=== PATIENT | female | born 1985 | race African-American/Black ===

== ENCOUNTER 2017-03-23 22:35 | Inpatient (IN) ==
[2017-03-24] MEDS ORDERED: ONDANSETRON 4 MG/2 ML VIAL IV STA (00:41)
[2017-03-24] MEDS ORDERED: cefTRIAXone 1,000 MG in SODIUM CHLORIDE 0.9% 100 ML IV STA (00:41)
[2017-03-24] MEDS ORDERED: SODIUM CHLORIDE 0.9% 1,000 ML IV STA (00:41)
[2017-03-24] MEDS ORDERED: KETOROLAC 30 MG/1 ML VIAL IV STA (00:41)
[2017-03-24] MEDS ORDERED: HYDROmorphone 2 MG/1 ML VIAL IV STA (00:41)
[2017-03-24 01:20] LABS: Basophils # 0.1 10*3/uL (0.0-0.2); Basophils % 0.5 % (0.0-0.8); Eosinophils # 0.1 10*3/uL (0.0-0.87); Eosinophils % 1.1 % (0.00-10.9); Hematocrit 40.7 VOL% (35.7-47.0); Hemoglobin 13.2 GM/DL (12.0-16.0); Immature Granulocytes % 0.3 %; Immature Granulocytes Absolute 0.03 #; Lymphocytes # 5.2 10*3/uL (1.4-4.0); Lymphocytes % 51.7 % (21.3-54.2); Mean Corpuscular HGB Conc 32.4 GM/DL (32-36); Mean Corpuscular Hemoglobin 25 PG (27-34); Mean Corpuscular Volume 78.3 FL (87-102); Mean Platelet Volume 10.1 FL (9.6-12.0); Monocytes # 0.6 10*3/uL (0.11-0.8); Monocytes % 5.7 % (1.7-12.7); Neutrophils # 4.1 10*3/uL (1.4-7.4); Neutrophils % 40.7 % (38.7-73.9); Platelet Count 370 T/CUMM (130-400); Red Cell Distribution Width 16.1 % (9.3-17.3); White Blood Count 10.1 T/CUMM (4-12)
[2017-03-24] MEDS ORDERED: cefTRIAXone 1,000 MG VIAL ONE (01:21)
[2017-03-24] MEDS ORDERED: ONDANSETRON 4 MG/2 ML VIAL ONE (01:21)
[2017-03-24] MEDS ORDERED: HYDROmorphone 2 MG/1 ML VIAL ONE (01:22)
[2017-03-24] MEDS ORDERED: KETOROLAC 30 MG/1 ML VIAL ONE (01:22)
[2017-03-24 01:27] LABS: Apearance,Urine CLEAR (Clear); Bilirubin,Urine Negative (Negative); Blood, Urine Large mg/dL (Negative); Glucose,Urine (UA) Negative (Negative); Ketones,Urine Negative (Negative); Mucus,Urine Occasional /LPF (Occasional); Nitrite,Urine Positive (Negative); Protein,Urine 30 MG/DL; RBC,Urine 423 /HPF (0-4); Squamous Epithelial Cell,Urine Occasional /HPF (0-10); Urine Color BLUE (Yellow); Urine Specific Gravity 1.004 (1.001-1.035); WBC,Urine 75 /HPF (0-6)
[2017-03-24] MEDS ORDERED: LEVOFLOXACIN INJ 750 MG in PREMIX 1 EACH IV STA (01:31)
[2017-03-24 02:02] LABS: Lactic Acid 0.7 MMOL/L (0.4-2.0)
[2017-03-24 02:04] LABS: Alanine Aminotransferase 28 U/L (13-56); Albumin 3.5 G/DL (3.4-5.0); Alkaline Phosphatase 98 U/L (45-117); Amylase 68 U/L (25-115); Aspartate Amino Transferase 16 U/L (0-37); Bilirubin,Total < 0.39 MG/DL (0.2-1.0); Blood Urea Nitrogen 14 MG/DL (7-18); Calcium 9.1 MG/DL (8.5-10.1); Glucose 90 MG/DL (74-106); Magnesium 2.1 MG/DL (1.8-2.4); Osmolality,Calculated 273.8 MOS/KG (273-304); Potassium 4.6 MMOL/L (3.5-5.1); Sodium 137 MMOL/L (136-145); Total Protein 7.1 G/DL (6.4-8.3)
[2017-03-24] MEDS ORDERED: LEVOFLOXACIN INJ 150 ML IV ONE (02:42)
[2017-03-24] MEDS ORDERED: ONDANSETRON 4 MG/2 ML VIAL IV PRN (03:00)
[2017-03-24] MEDS ORDERED: ACETAMINOPHEN 325 MG TABLET PO PRN (03:00)
[2017-03-24] MEDS: SODIUM CHLORIDE 0.9% 1,000 ML IV SCH ×3 (04:29→21:05)
[2017-03-24] MEDS ORDERED: HYDROmorphone 2 MG/1 ML VIAL IV ONE (04:43)
[2017-03-24] MEDS: PHENAZOPYRIDINE 95 MG TABLET PO SCH ×4 (09:33→21:10)
[2017-03-24 09:43] LABS: Basophils # 0.1 10*3/uL (0.0-0.2); Basophils % 0.6 % (0.0-0.8); Eosinophils # 0.1 10*3/uL (0.0-0.87); Eosinophils % 0.6 % (0.00-10.9); Hematocrit 37.6 VOL% (35.7-47.0); Hemoglobin 12.3 GM/DL (12.0-16.0); Immature Granulocytes % 0.2 %; Immature Granulocytes Absolute 0.02 #; Lymphocytes # 3.9 10*3/uL (1.4-4.0); Mean Corpuscular HGB Conc 32.7 GM/DL (32-36); Mean Corpuscular Hemoglobin 26 PG (27-34); Mean Corpuscular Volume 77.8 FL (87-102); Mean Platelet Volume 10.7 FL (9.6-12.0); Monocytes # 0.6 10*3/uL (0.11-0.8); Monocytes % 7.1 % (1.7-12.7); Neutrophils # 4.2 10*3/uL (1.4-7.4); Neutrophils % 47.5 % (38.7-73.9); Platelet Count 373 T/CUMM (130-400); Red Blood Count 4.83 MC/CUMM (3.8-5.5); Red Cell Distribution Width 16.1 % (9.3-17.3); White Blood Count 8.9 T/CUMM (4-12)
[2017-03-24 10:07] LABS: Calcium 8.1 MG/DL (8.5-10.1); Osmolality,Calculated 276.5 MOS/KG (273-304); Potassium 4.5 MMOL/L (3.5-5.1)
[2017-03-24] MEDS: KETOROLAC 30 MG/1 ML VIAL IV PRN (21:10)
[2017-03-25] MEDS: cefTRIAXone 1,000 MG in SYRINGE 1 EACH IV SCH (01:29)
[2017-03-25] MEDS: SODIUM CHLORIDE 0.9% 1,000 ML IV SCH ×4 (01:29→18:50)
[2017-03-25] MEDS: traMADol 50 MG TABLET PO PRN (01:36)
[2017-03-25] MEDS: LEVOFLOXACIN INJ 500 MG in PREMIX 1 EACH IV SCH (02:40)
[2017-03-25] MEDS: PHENAZOPYRIDINE 95 MG TABLET PO SCH ×3 (10:02→21:27)
[2017-03-25] MEDS: KETOROLAC 30 MG/1 ML VIAL IV PRN ×2 (11:53→21:27)
[2017-03-25] MEDS: LACTULOSE 20 GM/30 ML UDCUP PO PRN (21:30)
[2017-03-26] MEDS: cefTRIAXone 1,000 MG in SYRINGE 1 EACH IV SCH (01:00)
[2017-03-26] MEDS: LEVOFLOXACIN INJ 500 MG in PREMIX 1 EACH IV SCH ×2 (01:01→01:49)
[2017-03-26] MEDS: KETOROLAC 30 MG/1 ML VIAL IV PRN ×2 (03:35→20:57)
[2017-03-26] MEDS: SODIUM CHLORIDE 0.9% 1,000 ML IV SCH ×3 (03:38→16:11)
[2017-03-26] MEDS: PHENAZOPYRIDINE 95 MG TABLET PO SCH ×3 (09:04→20:56)
[2017-03-26] MEDS: LACTULOSE 20 GM/30 ML UDCUP PO PRN (09:07)
[2017-03-26] MEDS: traMADol 50 MG TABLET PO PRN (14:56)
[2017-03-26] MEDS ORDERED: MAGNESIUM CITRATE 300 ML BOTTLE PO ONE (14:58)
[2017-03-27] MEDS: cefTRIAXone 1,000 MG in SYRINGE 1 EACH IV SCH (01:33)
[2017-03-27] MEDS: SODIUM CHLORIDE 0.9% 1,000 ML IV SCH ×2 (01:33→08:43)
[2017-03-27] MEDS: LEVOFLOXACIN INJ 500 MG in PREMIX 1 EACH IV SCH (01:33)
[2017-03-27] MEDS: PHENAZOPYRIDINE 95 MG TABLET PO SCH (08:43)
[2017-03-27 11:31] VITALS: BP 143/84
[2017-03-27] MEDS: KETOROLAC 30 MG/1 ML VIAL IV PRN (12:49)
== END 2017-03-27 15:20 | disposition home or self-care (01) | DRG 463 ==
LOC: N.ED 22:35 → N.EDINP 03-24 03:00 → N.5E 03-24 03:22
PROVIDERS: ADMIT Internal Medicine; ATTEND Internal Medicine